=== PATIENT | female | born 1965 | race Caucasian/White ===

== ENCOUNTER 2025-05-20 12:37 | Emergency (ER) | payer BC ==
[~2025-05-20] VITALS: Ht 177.8 cm; Wt 121.0 kg
--- NOTE | 2025-05-20 12:47 | Physician Documentation ---
History of Present Illness Stated Complaint: FLU SYMPTOMS Time Seen by MD: 12:43 HPI This is a 60-year-old female who presents by ambulance for evaluation of six episodes of diarrhea and diffuse abdominal pain as well as nausea that began 3 hours ago without any obvious trigger provocation. No palliating or aggravating factors. Did not attempt to treat it. Feels very weak. Denies chest pain no shortness a breath. Denies any fever or chills. No concern for tobacco, alcohol or illicit substances use. Medication Reconciliation Allergies: Coded Allergies: lisinopril (Unverified Allergy, Unknown, FACIAL SWELLING, LIP SWELLING, 05/20/25) Review of Systems ROS 10 point review of systems was performed and unless noted above in HPI is negative for acute process/complaint. Physical Exam Physical Exam GENERAL: Awake, alert, oriented, GCS 15, no apparent distress, non-toxic appearing, answers questions, follows commands appropriately. Examined on EMS rney, placed in bed 15 HEENT: Atraumatic, normocephalic, pupils equal, extraocular muscles intact, sclerae anicteric, mucus membranes moist, oropharynx is clear, no stridor. NECK: supple, full active range of motion, trachea midline, no thyromegaly, no lymphadenopathy, no JVD. CARDIOVASCULAR: regular rate/rhythm, no murmurs/gallops/rubs, Pulses are 2+ in all extremities and symmetric. Capillary refill less than 2 seconds. PULMONARY: Nonlabored, good air movement ,no respiratory distress, speaking in full sentences, clear to auscultation bilaterally, no wheezing, no ronchi, no rales, no accessory muscle use. GASTROINTESTINAL: Soft, non-tender, non-distended, normal active bowel sounds, no organomegaly, no pulsatile masses, no CVA tenderness. NEUROLOGIC: Lucid with normal mental status. Normal facial symmetry. Moves all extremities symmetrically and with purpose. No truncal ataxia. Speech is fluid without evidence of dysarthria or aphasia, no focal deficits appreciated. MUSCULOSKELETAL: There is full range of motion of all extremities. There is no joint pain or joint swelling or joint erythema. There is no muscle pain or tenderness or swelling. EXTREMITIES: warm, well-perfused, no cyanosis, no clubbing, no edema, no acute deformities. Skin: warm, dry, no rashes or lesions, no jaundice, no petechiae orpurpura. No ecchymosis. PSYCHIATRIC: Normal affect, normal insight, normal concentration. Focused exam: [No guarding or] Medical Decision Making Findings Facility Status: ED Holds, [facility] process The plan was discussed with the patient, who demonstrates clear understanding of the plan and is in agreement with the plan unless otherwise noted in the chart. All questions have been answered, all concerns were addressed unless otherwise documented. I was available throughout their ED stay for frequent reassessment and questions. Differential Diagnoses (considered and possible or likely): [Differential diagnosis considered includes acute appendicitis, acute cholecystitis, pancreatitis, gastritis, PUD, diverticulitis, mesenteric ischemia, abdominal aortic aneurysm, bowel obstruction, enteritis, colitis, fecal impaction, volvulus, IBS, inflammatory bowel disease, specific food intolerance, peritonitis, perforated viscous, malignancy, UTI, abscess, and abdominal pain NOS. Pelvic source of pain was also considered including endometritis, dysmenorrhea, ovarian cyst, ovarian torsion, PID, TOA, cervicitis, vaginitis, or uterine fibroid. History, physical exam, and workup exclude many of the more serious causes listed above. ] ??Differential Diagnoses (considered and unlikely, not requiring evaluation currently): [Aortic/great vessels dissection was considered but it is unlikely based on absence of ripping, tearing, migratory chest pain, absence of syncope or focal neurologic deficits, physical examination indicating equal and symmetric pulses.] MDM Data Please see [facility] for the following: Independent Historians and external Records Review. Historian: [Patient] Independent Historians: ?[EMS, record review] Medication Management: [Reviewed medication list] Social History and determinants: [Reviewed] Please see the body of the note for the following: Any independent interpretations of ECG, imaging studies. All vitals signs/haemodynamics, ordered tests were independently reviewed and interpreted by myself. Nursing triage complaint and vitals reviewed, additional nursing notes were reviewed as available and I agree unless otherwise noted or documented in co ntradiction in the chart Vital Signs: Independently reviewed Labs: Independently interpreted Imaging: Independently interpreted Old Medical Records: Independently reviewed, see [facility] for relevant summary and information Pulse Oximetry: [96%] interpreted as [normal on room air] by me [[employer] Welding Machine Operator: [Regular Rate, Regular rhythm, no ectopy, NSR] reviewed and interpreted by me] Additionally notably showing: [Hemodynamics reviewed. The patient is not febrile, not tachycardic, no evidence of hypotension respiratory distress. CBC shows minimal leukocytosis 88% neutrophils. Most likely reactive. Chemistry shows no derangement. Initial and repeat troponins are negative. Lipase is normal. Advanced imaging was reviewed and interpreted by myself. I do not appreciate any free air, no evidence of bowel obstruction. The radiology interpretation states no acute disease, incidental finding of fibroid and a liver cyst.] Tests considered but not ordered include: [Ultrasound of the right upper quadrant has been considered but the patient does not have right upper quadrant pain or liver lab derangement. Presenting complaint of diarrhea as unlikely the manifestation of acute cholecystitis] Social Determinants of Health Impact: Patient was evaluated in [facility] [place] to healthcare due to below par ratio of patient to medical providers. [] Comorbid Conditions Impacting Present Evaluation and Care/Treatment: [Status post appendectomy] Management Discussions with other Healthcare Providers: [None] Treatment and Disposition Medication Management (Given or considered): []. See EMR for details Consideration for Hospitalization/Escalation/Deescalation of Care: Admission for observation has been considered, [however the patient is able to tolerate p.o., their symptoms are controlled, they are able to rely on oral medications, and their chief complaint/diagnosis can be managed on outpatient basis.] ?ED Course:?[No clinical deterioration.] ?Shared decision making:?[Patient is hemodynamically stable for discharge home with follow with their primary care provider. [ ] Specific and cautious return precautions provided and discussed with full understanding. Any incidental findings were also discussed and follow up recommendations given. [] All questions answered. Patient/family were able to verbalize back return precautions. Patient/family agree to plan. Copies of imaging and laboratory studies were provided.] Code status:?FULL Please see the full Electronic Medical Record for full details of nursing documentation, medications list, other records of complete past medical history and conditions, vital signs, laboratory studies, and any radiologic study interpretations by radiologists. Portions of this note were completed using [employer] dictation software and as a result there may exist minor errors in spelling. I have reviewed elements of past family and social history and agree as included in note. Departure Disposition: 01 HOME / SELF CARE / HOMELESS Impression: Primary Impression: Diarrhea Additional Impression: Generalized weakness Condition: Improved Discharge Instructions: Diarrhea, Adult Referrals: NO PRIMARY CARE PROVIDER (PCP) Education Educated: Patient Educated regarding: diagnosis, treatment, prognosis, need for follow up Signature Scribe Signature: No scribe Attestation: This note accurately reflects clinical decisions, work performed by myself, DO NAIDA Mari NICHOLAS M DO May 20, 2025 12:47
[2025-05-20 12:48] VITALS: TEMP 98.3
[2025-05-20 13:04] LABS: MEAN PLATELET VOLUME 7.5 FL (7.4-10.4); RED CELL DISTRIBUTION WIDTH 13.5 % (11.5-14.5)
[2025-05-20 13:19] LABS: CREATININE 0.90 MG/DL (0.40-0.90); TOTAL CARBON DIOXIDE 20.9 MMOL/L (24-32); eCRCL 73 ML/MIN; eGFR 64 ML/MIN
[2025-05-20] MEDS: normal saline 1000ML IV soln IVB ONE (13:23)
[2025-05-20] MEDS ORDERED: iohexol 300mg/ml 100ml inj. ONE (14:27)
--- NOTE | 2025-05-20 15:23 | RADIOLOGY REPORT ---
CT abdomen and pelvis with IV contrast INDICATION: Diffuse abdominal pain, right flank greater than all TECHNIQUE: Serial axial images were performed through the abdomen and pelvis and then reformatted in the sagittal and coronal plane. All CT scans at this medical facility are performed using dose modula tion techniques as appropriate to a performed exam including the following: Automated exposure contro l was utilized; adjustment of the MA and/or KvP according to patient size; and use of iterative recon struction technique. FINDINGS: Small hiatal hernia at the gastroesophageal junction Liver and spleen are normal in size without focal mass.. 2 cm cyst in the inferior right lobe of the liver. No renal masses, stones or hydronephrosis. No masses or enlargement of the adrenal glands or pancreas. No biliary dilatation. No gallstones. No distention of bowel loops to suggest mechanical obstruction of bowel. Appendix appears to have bee n removed. No free fluid. Within the pelvis, bladder is nondistended without stones. Versus heterogeneous in appearance possibl y due to fibroids. IMPRESSION: 1. No acute pathology in the abdomen or pelvis. 2. No evidence of renal mass , stone, infection, or obstruction 3. Incidental note made of a small cyst in the inferior right lobe of the liver. 4. Incidental note made of a small hiatal hernia GE junction. 5. Incidental note made of probable uterine fibroids Computed Tomographic Radiation Dosimetry Report: Total CTDI vol = 34.8 mGy Total DLP = 1856 mGy-cm Lo w dose protocols were performed.
[2025-05-20 16:24] LABS: LEUKOCYTE ESTERASE ,URINE NEGATIVE (Neg); NITRITES, URINE NEGATIVE (Neg); OCCULT BLOOD,URINE LARGE (Neg)
[2025-05-20 16:35] LABS: UA COLLECTION TYPE VOIDED
[2025-05-20 16:37] LABS: SQUAMOUS EPITHELIAL CELL,UR FEW /LPF (FEW)
[2025-05-20 16:38] LABS: URIC ACID CRYSTALS FEW /HPF (NEGATIVE)
[2025-05-20 16:59] VITALS: BP 157/80; PULSE 86; RESP 18; O2SAT 98
== END 2025-05-20 16:59 | disposition home or self-care (01) ==
LOC: ER 12:38
DX: R19.7 Diarrhea, unspecified (principal); R10.84 Generalized abdominal pain; R53.1 Weakness; Z88.8 Allergy status to other drugs, medicaments and biological substances
CPT/HCPCS: 36415; 74177; 80053; 81001; 83690; 83735; 84484; 85025; 99285; J7030; Q9967